=== PATIENT | male | born 1945 | race Caucasian/White ===

== ENCOUNTER → 2019-02-21 | Outpatient (CLI) | payer MEDICARE | END | disposition home or self-care (01) | LOC: PLD 11:12 → LAB SHORT 11:12 | DX: D04.62 Carcinoma in situ of skin of left upper limb, including shoulder (principal); L57.0 Actinic keratosis | CPT/HCPCS: 88305 ==

== ENCOUNTER → 2021-04-08 | Outpatient (CLI) | payer MEDICARE | END | disposition home or self-care (01) | LOC: LAB SHORT 09:48 → LAB 09:48 | DX: J02.9 Acute pharyngitis, unspecified (principal) | CPT/HCPCS: 87081 ==

== ENCOUNTER → 2021-09-17 | Outpatient (CLI) | payer MEDICARE ==
[2021-09-17 10:14] LABS: CHOL/HDL RATIO 4.5; Cholesterol 187 mg/dL (50-200); HDL Cholesterol 42 mg/dL (>39); LDL/HDL RATIO 2.9; Low Density Lipoprotein Chol 121 mg/dL (<110); Thyroid Stimulating Hormone 0.831 uIU/mL (0.360-4.800); Triglycerides 119 mg/dL (30-160); Very Low Density Lipoprot Chol 23 mg/dL (6-32)
[2021-09-17 13:01] LABS: PSA, %Free 27.9 %
== END | disposition home or self-care (01) ==
LOC: LAB SHORT 09:48
PROVIDERS: Physician Assistant
DX: N40.1 Benign prostatic hyperplasia with lower urinary tract symptoms (principal); E78.5 Hyperlipidemia, unspecified; E04.2 Nontoxic multinodular goiter; R73.09 Other abnormal glucose
CPT/HCPCS: 80061; 83036; 84153; 84154; 84443

== ENCOUNTER → 2023-09-12 | Outpatient (CLI) | payer MEDICARE | END | disposition home or self-care (01) | LOC: LAB SHORT 12:24 | DX: D04.21 Carcinoma in situ of skin of right ear and external auricular canal (principal) | CPT/HCPCS: 88305 ==

== ENCOUNTER 2025-01-17 13:49 | Day surgery (SDC) | payer OTHER ==
[~2025-01-17] VITALS: Ht 182.9 cm; Wt 84.8 kg
[~2025-01-17 13:49] MED LIST: Atropine Sulfate 0.1 MG/ML 10ML SYR ONE; Glycopyrrolate 0.2 MG/ML 1MLVIAL ONE; Lactated Ringer's 1,000 ML IV ONE; Lidocaine 2% 5 ML SDV ONE; Lidocaine HCl/Pf 1% 5 ML VIAL ONE; Ondansetron HCl 2 MG / ML 2ML Vial ONE; ePHEDrine Sulfate 50 MG/ML 1ML Injection ONE; propofoL 50 ML IV ONE
[2025-01-17] MEDS ORDERED: DORZOLAMIDE 2% (14:12)
[2025-01-17] MEDS ORDERED: Prinivil10 MG (14:13)
[2025-01-17] MEDS ORDERED: NIAC500 (14:13)
[2025-01-17] MEDS ORDERED: LATA.005SO (14:13)
[2025-01-17] MEDS ORDERED: SYMBICORT 80-10.2 GM (14:14)
[2025-01-17] MEDS ORDERED: Lactated Ringer's 1,000 ML IV ONE (14:43)
[2025-01-17 16:16] VITALS: BP 125/63
== END 2025-01-17 16:14 | disposition home or self-care (01) ==
LOC: ORSCSDS 13:49
PROVIDERS: Surgery
PROC: 0DBN8ZX Excision of Sigmoid Colon, Via Natural or Artificial Opening Endoscopic, Diagnostic (ICD-10-PCS; principal; 2025-01-17 15:15)
DX: Z12.11 Encounter for screening for malignant neoplasm of colon (principal); K63.5 Polyp of colon; K64.8 Other hemorrhoids; J44.9 Chronic obstructive pulmonary disease, unspecified; E78.5 Hyperlipidemia, unspecified; I10 Essential (primary) hypertension; R00.0 Tachycardia, unspecified; Z87.891 Personal history of nicotine dependence; Z79.899 Other long term (current) drug therapy
CPT/HCPCS: 88305; J0461; J2003; J2405; J2704; J7120